=== PATIENT | male | born 1960 | race Caucasian/White ===

== ENCOUNTER 2022-07-20 05:50 | Emergency (ER) | payer OTHER ==
[~2022-07-20] VITALS: Ht 162.6 cm; Wt 88.5 kg
[2022-07-20 05:55] VITALS: BP 171/76
--- NOTE | 2022-07-20 05:55 | NUR ---
TO BED AMBULATORY
--- NOTE | 2022-07-20 06:15 | NUR ---
RECEIVED IN BED 5 WITH C/O N/V , DIZZINESS SINCE SATURDAY, SEEN IN ER LAST SATURDAY. PT SAID HIS HEAD IS SPINNING AND EVERY TIME IT DOES, HE VOMITS
--- NOTE | 2022-07-20 06:24 | NUR ---
Dr. Wu examining patient.
[2022-07-20] MEDS ORDERED: MECLIZINE 25 MG TAB PO ONE (06:35)
[2022-07-20] MEDS ORDERED: MECL-303 PO (07:03)
[2022-07-20 08:05] VITALS: BP 128/80
== END 2022-07-20 08:05 | disposition home or self-care (01) ==
LOC: MED 05:50
DX: R42 Dizziness and giddiness (principal); Z72.89 Other problems related to lifestyle
CPT/HCPCS: 93005; 99283; J8597